=== PATIENT | female | born 1945 | race Caucasian/White ===

== ENCOUNTER → 2016-09-15 | Outpatient (CLI) | payer MEDICARE, BC ==
[~2016-09-15] MED LIST: AMOXICILLIN875 MG PO; ASA CHILDREN'S81 MG PO; ASCORBIC ACID500 MG PO; BENADRYL25 MG PO; BREO ELLIP1 PUFF/DOS IH; CALCIUM600 MG PO; CIPRO750 MG PO; CLINORIL DPS150 MG PO; COLACE-DPS100 MG PO; DELTASONE20 MG PO; DUONEB DPS3 ML IH; FLEXERIL DPS5 MG PO; GARLIC1 EAC1 PO; MAALOX DPS30 ML PO; MAGNESIUM250 MG PO; MAPAP PM (TYLEN1 TAB PO; MUCINEX600 MG PO; MULTIVITAMINS1 EAC1 PO; NEURONTIN DPS100 MG PO; NORCO 5-325 TA1 EACH PO; PEPCID DPS20 MG PO; PLAQUENIL DPS200 MG PO; PROTONIX40 MG PO; PROVENTIL2.5 MG/3 M IH; PROZAC40 MG PO; SENOKOT-S TABL1 EACH PO; SINEMET 10-1001 EACH PO; SYNTHROID150 MCG PO; TEARS NATURAL D15 ML OU; TYLENOL DPS325 MG PO; VESICARE10 MG PO; XANAX DPS0.25 MG PO; ZOFRAN4 MG PO
== END | disposition home or self-care (01) ==
LOC: PTH.S 08:15
DX: J44.9 Chronic obstructive pulmonary disease, unspecified (principal); J98.4 Other disorders of lung

== ENCOUNTER 2016-11-18 15:56 | Emergency (ER) | payer MEDICARE, BC ==
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
[2017-02-02] MEDS ORDERED: SYNTHROID150 MCG PO (16:46)
[2017-02-02] MEDS ORDERED: PLAQUENIL DPS200 MG PO (16:46)
[2017-02-02] MEDS ORDERED: PROZAC40 MG PO (16:46)
[2017-02-02] MEDS ORDERED: PROTONIX40 MG PO (16:46)
[2017-02-02] MEDS ORDERED: NEURONTIN DPS100 MG PO (16:47)
[2017-02-02] MEDS ORDERED: BREO ELLIP1 PUFF/DOS IH (16:47)
[2017-02-02] MEDS ORDERED: CLINORIL DPS150 MG PO (16:47)
[2017-02-02] MEDS ORDERED: PROVENTIL2.5 MG/3 M IH (16:47)
[2017-02-02] MEDS ORDERED: ASCORBIC ACID500 MG PO (16:48)
[2017-02-02] MEDS ORDERED: MULTIVITAMINS1 EAC1 PO (16:48)
[2017-02-02] MEDS ORDERED: CALCIUM600 MG PO (16:49)
[2017-02-02] MEDS ORDERED: MAGNESIUM250 MG PO (16:49)
[2017-02-02] MEDS ORDERED: GARLIC1 EAC1 PO (16:49)
[2017-02-02] MEDS ORDERED: MUCINEX600 MG PO (16:49)
[2017-02-02] MEDS ORDERED: AMOXICILLIN875 MG PO (16:50)
[2017-02-02] MEDS ORDERED: MAPAP PM (TYLEN1 TAB PO (16:50)
[2017-02-02] MEDS ORDERED: SINEMET 10-1001 EACH PO (16:50)
[2017-03-01] MEDS ORDERED: TEARS NATURAL D15 ML OU (11:40)
[2017-03-01] MEDS ORDERED: CIPRO750 MG PO (11:40)
[2017-03-01] MEDS ORDERED: DELTASONE20 MG PO (11:41)
[2017-03-01] MEDS ORDERED: COLACE-DPS100 MG PO (11:42)
[2017-03-01] MEDS ORDERED: DUONEB DPS3 ML IH (11:42)
[2017-03-01] MEDS ORDERED: PEPCID DPS20 MG PO (11:42)
[2017-03-01] MEDS ORDERED: BENADRYL25 MG PO (11:42)
[2017-03-01] MEDS ORDERED: TYLENOL DPS325 MG PO (11:43)
[2017-03-01] MEDS ORDERED: MAALOX DPS30 ML PO (11:43)
[2017-03-01] MEDS ORDERED: NORCO 5-325 TA1 EACH PO (11:43)
[2017-03-01] MEDS ORDERED: SENOKOT-S TABL1 EACH PO (11:43)
[2017-03-01] MEDS ORDERED: FLEXERIL DPS5 MG PO (11:43)
[2017-03-01] MEDS ORDERED: ASA CHILDREN'S81 MG PO (11:44)
[2017-03-01] MEDS ORDERED: ZOFRAN4 MG PO (11:44)
[2017-03-01] MEDS ORDERED: XANAX DPS0.25 MG PO (11:46)
[2017-03-01] MEDS ORDERED: VESICARE10 MG PO (11:46)
== END 2016-11-18 16:35 | disposition home or self-care (01) ==
LOC: ER 15:56
DX: J70.5 Respiratory conditions due to smoke inhalation (principal); J45.909 Unspecified asthma, uncomplicated; E03.9 Hypothyroidism, unspecified; Z88.2 Allergy status to sulfonamides; Z88.6 Allergy status to analgesic agent; Z79.82 Long term (current) use of aspirin; Z79.899 Other long term (current) drug therapy; Z87.891 Personal history of nicotine dependence